=== PATIENT | female | born 1955 | race Caucasian/White ===

== ENCOUNTER 2019-10-09 12:43 | Observation (INO) | payer OTHER ==
[~2019-10-09] VITALS: Ht 157.5 cm; Wt 109.3 kg
[2019-10-09 12:45] VITALS: BP 112/62
[2019-10-09 13:22] LABS: BASO % 0.3 % (0.0-1.0); EOS # 0.1 10*3/uL (0.0-0.4); EOS % 1.3 % (1.0-4.0); HEMATOCRIT 39.6 % (37.0-47.0); LYMPH % 21.5 % (27.0-41.0); MEAN CELL VOLUME 84.6 fl (81.0-99.0); MEAN CORPUSCULAR HGB 26.3 pg (27.0-31.0); MEAN CORPUSCULAR HGB CONC 31.1 g/dl (33.0-37.0); MEAN PLATELET VOLUME 9.8 fl (9.6-12.3); MONO # 0.8 10*3/uL (0.1-1.0); NEUT # 6.5 10*3/uL (2.3-7.9); NEUT % 68.5 % (47.0-73.0); PLATELET COUNT AUTOMATED 281 10*3/uL (130-400); RED BLOOD COUNT 4.68 10*6/uL (4.10-5.10); WHITE BLOOD COUNT 9.5 10*3/uL (4.8-10.8)
[2019-10-09 13:32] LABS: ACT PARTIAL THROMBO TIME 24.2 SECONDS (20.0-32.1)
[2019-10-09 13:39] LABS: ALBUMIN 3.7 gm/dl (3.1-4.5); ALKALINE PHOSPHATASE 59 U/L (45-117); BUN 10 mg/dl (7-24); CHLORIDE 108 mmol/L (98-107); CREATININE 1.07 mg/dL (0.55-1.02); LIPASE 102 U/L (73-393); POTASSIUM 4.1 mmol/L (3.5-5.1); SGOT/AST 50 IU/L (3-35); SGPT/ALT 47 U/L (12-78); SODIUM 139 mmol/L (136-145); TOTAL PROTEIN 7.4 gm/dL (6.4-8.2)
[2019-10-09 13:42] LABS: TROPONIN I < 0.015 ng/ml (<0.045)
[2019-10-09 16:00] VITALS: BP 116/68
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
[2019-10-09] MEDS ORDERED: CRESTOR40 M1 PO (17:25)
[2019-10-09] MEDS ORDERED: LASIX40 MG PO (17:25)
[2019-10-09] MEDS ORDERED: Lopressor25 MG PO (17:26)
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
[2019-10-09] MEDS ORDERED: Imdur SA60 MG PO (17:27)
[2019-10-09] MEDS ORDERED: ZOLOFT50 MG PO (17:28)
[2019-10-09] MEDS ORDERED: PLAVIX75 M1 PO (17:28)
[2019-10-09] MEDS ORDERED: LISINOPRIL5 MG PO (17:28)
[2019-10-09] MEDS ORDERED: ECOTRIN81 M1 PO (17:29)
[2019-10-09] MEDS ORDERED: VITAMIN D325 MCG PO (17:29)
--- NOTE | 2019-10-09 19:00 | NUR ---
REPORT RECEIVED FROM JAMAL ADEN. PT LYING IN BED AT THIS TIME. NO S/S OF DISTRESS NOTED. CALL LIGHT IN REACH
[2019-10-09 20:00] VITALS: BP 153/74
--- NOTE | 2019-10-09 21:00 | NUR ---
PT WATCHING TV. NO COMPLAINTS VOICED, CALL LIGHT IN REACH
--- NOTE | 2019-10-09 23:00 | NUR ---
PT APPEARS TO BE SLEEPING AT THIS TIME, CALL LIGHT IN REACH
[2019-10-10] VITALS: BP 111/64
--- NOTE | 2019-10-10 01:00 | NUR ---
PT SLEEPING AT THIS TIME
--- NOTE | 2019-10-10 03:00 | NUR ---
PT SLEEPING AT THIS TIME
--- NOTE | 2019-10-10 05:00 | NUR ---
RESPIRATIONS EASY AND UNLABORED. PT SLEEPING. CALL LIGHT IN REACH
[2019-10-10 08:00] VITALS: BP 124/72
[2019-10-10 08:03] LABS: BASO # 0.1 10*3/uL (0.0-0.1); BASO % 0.8 % (0.0-1.0); EOS # 0.2 10*3/uL (0.0-0.4); EOS % 2.1 % (1.0-4.0); HEMATOCRIT 37.2 % (37.0-47.0); LYMPH # 2.4 10*3/uL (1.3-4.4); LYMPH % 32.4 % (27.0-41.0); MEAN CELL VOLUME 85.9 fl (81.0-99.0); MEAN CORPUSCULAR HGB 26.3 pg (27.0-31.0); MEAN CORPUSCULAR HGB CONC 30.6 g/dl (33.0-37.0); MEAN PLATELET VOLUME 10.3 fl (9.6-12.3); MONO # 0.7 10*3/uL (0.1-1.0); NEUT # 4.2 10*3/uL (2.3-7.9); NEUT % 55.3 % (47.0-73.0); PLATELET COUNT AUTOMATED 269 10*3/uL (130-400); RED BLOOD COUNT 4.33 10*6/uL (4.10-5.10); RED CELL DISTRI WIDTH 14.1 % (0-14.5); WHITE BLOOD COUNT 7.5 10*3/uL (4.8-10.8)
[2019-10-10 08:17] LABS: BUN 12 mg/dl (7-24); CHLORIDE 108 mmol/L (98-107); CHOLESTEROL 137 mg/dL (<200); CREATININE 0.99 mg/dL (0.55-1.02); HDL CHOLESTEROL 44 mg/dl (40-60); LDL CHOLESTEROL 71 mg/dL (9-159); POTASSIUM 4.1 mmol/L (3.5-5.1); SODIUM 141 mmol/L (136-145); TRIGLYCERIDES 112 mg/dl (<150); VLDL CHOLESTEROL 22 mg/dL (6-40)
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
[2019-10-10 08:24] LABS: THYROID STIM HORMONE (HS) 0.957 uIU/ml (0.358-4.75)
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
--- NOTE | 2019-10-10 09:15 | NUR ---
PRN PO TYLENOL EFFECTIVE, PER PATIENT.
--- NOTE | 2019-10-10 11:25 | NUR ---
Discharge instructions reviewed with patient. Patient receptive and verbalizes understanding. Follow-up care arranged. Written instructions given to patient. PATIENT DISCHARGED TO [facility] BY WHEELCHAIR, ACCOMPANIED BY [facility], FOR TRANSPORT HOME BY PRIVATE VEHICLE WITH HER SISTER. MILAGROS RUDOLPH
--- NOTE | 2019-10-10 15:13 | NUR ---
News Assignment Editor in to talk to patient. Patient states lives at HOME with ALONE. There are NO steps in the home. Physician: DR NESS Pharmacy: [facility] services: NONE Patient's level of ADLs: INDEPENDENT Patient has working utilities: YES DME: NONE Follow-up physician's appointment after d/c: WILL BE MADE BY HOSPITALIST NURSE DIRECTOR ON DISCHARGE Does patient want to access PORTAL?: NO Discharge plan PT LIVES ALONE AT HOME AND IS INDEPENDENT IN HER CARE. DENIES SHE WILL HAVE ANY NEEDS ON DISCHARGE. PLAN IS TO RETURN HOME WHEN MEDICALLY STABLE. WILL CONTINUE TO FOLLOW. STATES SHE WILL HAVE A RIDE HOME.. CARLOZ KELLOGG
== END 2019-10-10 11:25 | disposition home or self-care (01) ==
LOC: ED 12:43 → EDHOLD 15:35 → 5E 15:35 → EDHOLD 15:35 → 5E 16:15
PROVIDERS: Emergency Medicine; Internal Medicine; ADMIT Family Medicine
DX: R07.89 Other chest pain (principal); I25.10 Atherosclerotic heart disease of native coronary artery without angina pectoris; E87.8 Other disorders of electrolyte and fluid balance, not elsewhere classified; E78.5 Hyperlipidemia, unspecified; E66.01 Morbid (severe) obesity due to excess calories; Z68.42 Body mass index [BMI] 45.0-49.9, adult; V87.7XXA Person injured in collision between other specified motor vehicles (traffic), initial encounter; Y92.89 Other specified places as the place of occurrence of the external cause; Y93.89 Activity, other specified; Y99.8 Other external cause status